=== PATIENT | female | born 1955 | race Caucasian/White ===

== ENCOUNTER 2024-05-17 21:47 | Emergency (ER) | payer MEDICARE, MEDICAID ==
--- NOTE | 2024-05-17 21:57 | ED Physician Documentation ---
PD HPI ABD PAIN - Stated complaint Stated Complaint: GI - Chief complaint Chief Complaint: Abd Pain - History obtained from History obtained from: Patient - History of Present Illness Timing - onset: How many days ago (2-3) Timing - duration: Days (2-3) Timing - details: Gradual onset, Still present (increased today), Waxing and waning Quality: Cramping, Aching, Pain Location: Epigastric, LUQ Radiation: No: Lower back Associated symptoms: Fever, Nausea. No: Vomiting, Diarrhea, Constipation Similar symptoms before: Has not had sx before Review of Systems Constitutional: reports: Fever (subjective today). denies: Myalgias Nose: denies: Rhinorrhea / runny nose, Congestion Throat: denies: Sore throat Respiratory: denies: Cough GI: reports: Abdominal Pain, Nausea. denies: Vomiting, Constipation, Diarrhea : denies: Dysuria, Frequency PD PAST MEDICAL HISTORY - Past Medical History Past Medical History: Yes Psych: Depression, Anxiety - Past Surgical History Past Surgical History: Yes General: Appendectomy - Present Medications Home Medications: Ambulatory Orders Medication Instructions Recorded Confirmed Meloxicam [Mobic] 7.5 mg PO BID 10 Days #15 tablet 05/18/24 Ondansetron Odt [Zofran] 4 mg TL Q6H PRN #10 tablet 05/18/24 cephALEXin [Keflex] 500 mg PO TID #20 cap 05/18/24 metroNIDAZOLE [Flagyl] 250 mg PO TID #20 tablet 05/18/24 - Allergies Allergies/Adverse Reactions: Allergies Allergy/AdvReac Type Severity Reaction Status Date / Time No Known Drug Allergies Allergy Verified 05/17/24 21:50 - Social History Does the pt smoke?: No Smoking Status: Never smoker Does the pt drink ETOH?: No Does the pt have substance abuse?: No - Immunizations Immunizations are current?: Yes - POLST Patient has POLST: No PD ED PE NORMAL - Vitals Vital signs reviewed: Yes - General General: Alert and oriented X 3, No acute distress, Well developed/nourished - Cardiac Cardiac: RRR, No murmur - Respiratory Respiratory: No respiratory distress, Clear bilaterally - Abdomen Abdomen: Soft, Non distended, No organomegaly, Other (tender without guarding epigastric and LUQ areas. No percussion nor rebound tenderness. some tender without palpable lump in umbilical area. ). No: Normal bowel sounds (diminshed with some feeling of abd distension.) - Back Back: No CVA TTP - Derm Derm: Normal color, Warm and dry, No rash - Neuro Neuro: Alert and oriented X 3, Normal speech Results - Vitals Vitals: Vital Signs - 24 hr 05/18/24 00:17 Heart Rate 78 Respiratory 16 Rate Blood Pressure 132/74 H O2 Saturation 95 If not protocol 2 : Oxygen Flow, liters/minute Oxygen O2 Source Nasal cannula - Labs Labs: Laboratory Tests 05/17/24 05/17/24 05/17/24 22:08 22:18 22:18 WBC 15.2 H RBC 4.22 Hgb 13.0 Hct 40.4 MCV 95.7 MCH 30.8 MCHC 32.2 RDW 13.6 Plt Count 264 MPV 10.3 Neut # (Auto) 12.2 H Lymph # (Auto) 1.6 Bertie # (Auto) 1.1 H Eos # (Auto) 0.2 Baso # (Auto) 0.1 Absolute Nucleated RBC 0.00 Nucleated RBC % 0.0 Sodium 133 L Potassium 3.8 Chloride 100 L Carbon Dioxide 27 Anion Gap 6.0 BUN 12 Creatinine 0.8 Estimated GFR (MDRD) 71 L Glucose 108 H Calcium 9.2 Total Bilirubin 0.5 AST 20 ALT 16 Alkaline Phosphatase 76 Total Protein 6.9 Albumin 4.2 Globulin 2.7 Albumin/Globulin Ratio 1.6 Lipase 24 Urine Color YELLOW Urine Clarity CLEAR Urine pH 6.0 Ur Specific [place] 1.015 Urine Protein NEGATIVE Urine Glucose (UA) NEGATIVE Urine Ketones NEGATIVE Urine Occult Blood TRACE-INTA Urine Nitrite NEGATIVE Urine Bilirubin NEGATIVE Urine Urobilinogen 1 (NORMAL) Ur Leukocyte Esterase NEGATIVE Ur Microscopic Review NOT INDICATED Urine Culture Comments NOT INDICATED - Rads (name of study) abd'pelvic CT Relevant Findings:: Prelim report reviewed, EMP independent interpretation of test (sigmoid diverticulitis without abscess nor perforation. ) PD Medical Decision Making - ED course Complexity details: reviewed results (abd/pelvic CT shoiwng sigmoid uncomp licated diverticulitis. ), re-evaluated patient (she is comfortable here and declined opiate pain meds. She is stable for outpt treatment. Has subjective fevers at home and elevated WBC, so presume into infectious stage and will give abx as well. ), considered differential (upper abd paind and pressure. consdier GB, biliary, pancreatic, ulcer, transverse colitis. CT showing diverticulitis and has elevated WBC, so presume into infectious stage. Pt seems stable for outpt treatment.), d/w patient Reviewed Lab Results: uss the other fidnings of adrenal cysts that need further eval (repeat imaging at interval most likely). and the umbilical hernia that is not trapped or such. Likely a little tender currently because of increased abd pressure with diverticuitis and perhaps element of ileus/bloating. To see if tender/problem when well. Departure - Departure Disposition: Home, Self Care Clinical Impression: Abdominal pain, Diverticulitis, Umbilical hernia, Adrenal gland cyst Condition: Stable Record reviewed to determine appropriate education?: Yes Instructions: ED Diverticulitis Prescriptions: metroNIDAZOLE [Flagyl] 250 mg PO TID #20 tablet cephALEXin [Keflex] 500 mg PO TID #20 cap Meloxicam [Mobic] 7.5 mg PO BID 10 Days #15 tablet Ondansetron Odt [Zofran] 4 mg TL Q6H PRN #10 tablet PRN Reason: Nausea / Vomiting Comments: You do have a localized area of diverticulitis in inflammation around it in the transverse colon which is where you are hurting. We typically will treat this with staying well-hydrated and soft bland food for a few days with minimal fiber and roughage for the next week. The diverticulitis is both the inflammatory condition which can then lead to infection. We treated as both with an anti-inflammatory regularly for the next week and antibiotics as well. To that you can add Tylenol every 4-6 hours if needed for pains. I wrote prescriptions for these medicines for you. I also wrote for some ondansetron/Zofran if needed for nausea. You do have an umbilical hernia below the bellybutton. This likely has been present for a while and had not bothered you. It is likely a bit tender in that area because of the inflammation nearby underneath from the diverticulitis. If you do not have any pain or tenderness in that area after the next week or so with the diverticulitis treated, then no follow-up is needed and particular for the hernia. If you continue with some tenderness in the area then you could consult to general surgeon to see if it would warrant repair or not. Also incidental note on your CT scan are cysts in your adrenal glands which are atop the kidney. Common recommendation would be for an interval follow-up to make sure they are not growing in size such as an ultrasound in 6 months or so. I defer to your primary care for follow-up on that. Is any prescriptions to [facility]. Recheck if not improving well over the next few days and resolved by 4 to 5 days. Return if worse. Forms: PCP List Discharge Date/Time: 05/18/24 00:25
[2024-05-17 22:16] LABS: BILIRUBIN,URINE NEGATIVE (NEGATIVE); GLUCOSE, URINE (UA) NEGATIVE (NEGATIVE); KETONES,URINE (UA) NEGATIVE (NEGATIVE); LEUKOCYTE ESTERASE, URINE NEGATIVE (NEGATIVE); NITRITE,URINE NEGATIVE (NEGATIVE); OCCULT BLOOD,URINE TRACE-INTA (NEGATIVE); PROTEIN,URINE NEGATIVE (NEGATIVE); UROBILINOGEN,URINE 1 (NORMAL) E.U./dL (NORMAL)
[2024-05-17] MEDS: KETOROLAC 15 MG/ML VIAL IVP STA (22:20)
[2024-05-17] MEDS: SODIUM CHLORIDE 0.9% 1,000 ML IV STA (22:20)
[2024-05-17 22:27] LABS: BASOPHILS # (AUTO) 0.1 10^3/uL (0.0-0.1); BASOPHILS % (AUTO) 0.3 %; EOSINOPHILS # (AUTO) 0.2 10^3/uL (0.0-0.7); EOSINOPHILS % (AUTO) 1.4 %; HCT - HEMATOCRIT 40.4 % (37.0-47.0); LYMPHOCYTES # (AUTO) 1.6 10^3/uL (1.5-3.5); LYMPHOCYTES % (AUTO) 10.6 %; MEAN CORPUSCULAR HEMOGLOBIN 30.8 pg (27.0-31.0); MEAN CORPUSCULAR HGB CONC 32.2 g/dL (32.0-36.0); MEAN CORPUSCULAR VOLUME 95.7 fL (81.0-99.0); MEAN PLATELET VOLUME 10.3 fL (7.9-10.8); MONOCYTES # (AUTO) 1.1 10^3/uL (0.0-1.0); NEUTROPHILS # (AUTO) 12.2 10^3/uL (1.5-6.6); NEUTROPHILS % (AUTO) 80.3 %; PLT - PLATELET COUNT 264 10^3/uL (130-450); RED BLOOD COUNT 4.22 10^6/uL (4.20-5.40); RED CELL DISTRIBUTION WIDTH 13.6 % (12.0-15.0); WHITE BLOOD COUNT 15.2 x10^3/uL (4.8-10.8)
[2024-05-17 22:31] LABS: CLARITY,URINE CLEAR (CLEAR)
[2024-05-17 22:50] VITALS: O2SAT 95
[2024-05-17 22:50] LABS: ALBUMIN 4.2 g/dL (3.2-5.5); ALBUMIN/GLOBULIN RATIO 1.6 (1.0-2.2); BILIRUBIN,TOTAL 0.5 mg/dL (0.2-1.0); CALCIUM 9.2 mg/dL (8.5-10.3); CREATININE 0.8 mg/dL (0.6-1.3); POTASSIUM 3.8 mmol/L (3.5-4.5); TOTAL PROTEIN 6.9 g/dL (6.4-8.9)
[2024-05-17] MEDS ORDERED: iohexoL-300 100 ML VIAL ONE (23:00)
[2024-05-17] MEDS: iohexoL-300 100 ML VIAL IVP ONE (23:24)
--- NOTE | 2024-05-17 23:39 | CT Report ---
PROCEDURE: Abdomen/Pelvis W INDICATIONS: mid abd pain for 1-2 days CONTRAST: OMNI 300, 100mls TECHNIQUE: After the administration of intravenous contrast, a CT scan of the abdomen and pelvis was performed. Images were recorded and evaluated at appropriate window settings. Reformats: coronal and sagittal. F or radiation dose reduction, the following was used: automated exposure control, adjustment of mA and /or kV according to patient size. COMPARISON: None. FINDINGS: Image quality: Diagnostic Lower chest: Basal atelectasis and scarring. Possible minimal reticulation. Small hiatal hernia. Patulous distal esophagus. Liver: Unremarkable Gallbladder and biliary system: Unremarkable, nondilated Pancreas: Possible pancreas divisum. No ductal dilation or discrete mass. Spleen: Nonenlarged Adrenals: 1.4 cm left and right adrenal nodules. Kidneys: No solid mass. No hydronephrosis. Vessels and lymph nodes: The main portal vein is patent. No abdominal aortic aneurysm. No pathologic lymph nodes by size criteria. Bowel and peritoneum: No evidence of small bowel obstruction. No pathologic ascites. There are coloni c diverticula. Moderate fecal loading. There is moderate narrowing and focal diverticulitis changes in the mid transverse colon. The appendix is not seen Body wall: Small fat-containing umbilical hernia Pelvis: Bladder is unremarkable. Uterus is not seen. Bones: No acute or suspicious osseous finding. IMPRESSION: Transverse colon diverticulitis, with moderate inflammation. There is narrowing of the lumen at this location. Colonoscopy is recommended following clinical treatment. 1.4 cm bilateral adrenal nodules, usually adenomas. Adrenal protocol CT or MRI could confirm. Correla te with laboratory testing to determine functional status. Other findings above Reviewed by: Sathya Bernal MD on 05/17/2024 11:38 PM PDT Approved by: Sathya Bernal MD on 05/17/2024 11:38 PM PDT Station ID: [id number]
[2024-05-18] MEDS: metroNIDAZOLE 250 MG TABLET PO STA (00:06)
[2024-05-18] MEDS: cefTRIAXone 1 GM VIAL IVP STA (00:07)
[2024-05-18 00:26] VITALS: BP 132/74
== END 2024-05-18 00:25 | disposition home or self-care (01) ==
LOC: ED 21:47
DX: R10.13 Epigastric pain (principal); R10.12 Left upper quadrant pain; K57.32 Diverticulitis of large intestine without perforation or abscess without bleeding; E27.8 Other specified disorders of adrenal gland; K42.9 Umbilical hernia without obstruction or gangrene
CPT/HCPCS: 36415; 74177; 80053; 81003; 83690; 85025; 96374; 96375; 99284; A9270; Q9967; 81001; 87086